=== PATIENT | male | born 1945 ===

== ENCOUNTER 2018-03-19 10:19 | Day surgery (SDC) | payer OTHER, BC ==
[2018-03-16 13:46] LABS: BASOPHIL % 0.2 % (0-2); PLATELET COUNT 237 x10^3mcL (130-400); RED CELL DISTRIBUTION WIDTH 13.1 % (11.5-14.5)
[2018-03-16 14:02] LABS: CALCIUM 9.3 mg/dL (8.5-10.1); CARBON DIOXIDE 29.6 mmol/L (21-32); CHLORIDE SERUM 104 mmol/L (98-107); CREATININE SERUM 1.1 mg/dL (0.7-1.3); GFR1 > 60 mL/min; GLUCOSE SERUM 105 mg/dL (74-106); POTASSIUM SERUM 3.8 mmol/L (3.5-5.1); SODIUM SERUM 138 mmol/L (136-145)
[~2018-03-19] VITALS: Ht 175.3 cm; Wt 81.6 kg
[2018-03-19] VITALS (7 sets, daily range): BP systolic 105–138; BP diastolic 50–72
== END 2018-03-19 15:10 | disposition home or self-care (01) ==
LOC: DS → CL 12:36 → DS 13:30
PROVIDERS: Family Medicine
PROC: B2111ZZ Fluoroscopy of Multiple Coronary Arteries using Low Osmolar Contrast (ICD-10-PCS; 2018-03-19)
PROC: B2151ZZ Fluoroscopy of Left Heart using Low Osmolar Contrast (ICD-10-PCS; 2018-03-19)
PROC: 4A023N7 Measurement of Cardiac Sampling and Pressure, Left Heart, Percutaneous Approach (ICD-10-PCS; principal; 2018-03-19 12:30)
DX: I47.2 Ventricular tachycardia (principal); J45.909 Unspecified asthma, uncomplicated; Z68.27 Body mass index [BMI] 27.0-27.9, adult
CPT/HCPCS: CLHCL; C1760; C1769; C1887; C1894; J1644; J2001; J2250; J3010; J3490; Q9967